=== PATIENT | female | born 1995 | race Caucasian/White ===

== ENCOUNTER → 2017-05-04 | Outpatient (CLI) | payer BC ==
[~2017-05-04] MED LIST: IUD'IUD
--- NOTE | 2017-05-04 09:20 | DIAGNOSTIC IMAGING REPORT ---
LEFT WRIST MIN 3 VIEWS ROUTINE HISTORY: 21 years-old Female acute left-sided wrist pain without trauma. COMPARISON: None available. TECHNIQUE: 3 views of the left wrist. FINDINGS: There is no acute fracture, dislocation or significant degenerative changes. Soft tissues are within normal limits without radiopaque foreign body. IMPRESSION: No acute bony abnormality. The above report was generated using voice recognition software. It may contain grammatical, syntax or spelling errors. Electronically signed by: Álvaro Ureña M.D. 05/04/2017 9:18 AM Dictated Date/Time: 05/04/2017 9:17 AM
== END | disposition home or self-care (01) ==
LOC: C.RDSM 09:14
PROVIDERS: ATTEND Family Medicine
DX: M25.532 Pain in left wrist (principal)